=== PATIENT | female | born 1960 | race Caucasian/White ===

== ENCOUNTER 2016-11-26 15:54 | Inpatient (IN) | payer OTHER ==
[~2016-11-26] VITALS: Ht 165.1 cm; Wt 112.5 kg
--- NOTE | ~2016-11-26 | EKG ---
[place], [place] ELECTROCARDIOGRAM REPORT NAME: SHANNON FROST UNIT #: [id number] ROOM: [id number] DOCTOR: JORDI DENNISON MD BIRTHDATE: [birth year] DOS: 11/26/2016 TIME: 1637 hours. FINDINGS: 1. Sinus tachycardia at rate of 118. 2. Marked baseline artifact making interpretation difficult. 3. Possible left atrial enlargement. 4. Nonspecific ST-T wave changes. 5. Abnormal electrocardiogram. JORDI DENNISON MD CM:EKGRPT:ELECTROCARDIOGRAM REPORT [id number] JORDI DENNISON MD
[~2016-11-26 15:54] MED LIST: ATIVAN0.5 MG PO; FLUOXETINE40 MG PO; GLUCOPHAGE1000 MG PO; REMERON45 M1 PO; TEMAZEPAM30 MG PO; XALATAN 0.005%2.5 ML INTRAOC
[2016-11-26 15:59] VITALS: BP 169/75
[2016-11-26 16:16] VITALS: BP 171/87
[2016-11-26 16:39] LABS: HEMATOCRIT 31.7 % (37.0-47.0); HEMOGLOBIN 8.2 g/dl (12.0-16.0); MEAN CELL VOLUME 79.6 fl (81.0-99.0); MEAN CORPUSCULAR HGB 20.6 pg (27.0-31.0); MEAN CORPUSCULAR HGB CONC 25.9 g/dl (33.0-37.0); MEAN PLATELET VOLUME 8.5 fl (9.6-12.3); NUCLEATED RED BLOOD CELL 0.1 10*3/uL (0.0-0.0); NUCLEATED RED BLOOD CELL 0.3 % (0.0-0.0); PLATELET COUNT AUTOMATED 394 10*3/uL (130-400); RED BLOOD COUNT 3.98 10*6/uL (4.10-5.10); RED CELL DISTRI WIDTH 19.1 % (0-14.5); WHITE BLOOD COUNT 15.9 10*3/uL (4.8-10.8)
[2016-11-26 16:49] VITALS: BP 126/85
[2016-11-26 16:54] LABS: BUN 12 mg/dl (7-24); CARBON DIOXIDE 34 mmol/L (21-32); CHLORIDE 97 mmol/L (98-107); EST GLOM FILT AFRICAN AMERICAN > 60 ml/min; GLUCOSE 157 mg/dL (65-99); POTASSIUM 4.7 mmol/L (3.5-5.1); SODIUM 136 mmol/L (136-145)
[2016-11-26 16:55] LABS: TROPONIN I < 0.015 ng/ml (<0.045)
[2016-11-26 17:09] LABS: EOSINOPHIL # 0.2 10*3/uL (0-0.4); EOSINOPHILS 1 % (1-4); LYMPHOCYTE # 0.5 10*3/uL (1.3-4.4); MONOCYTE # 0.3 10*3/uL (0.1-1.0); NEUTROPHIL # 14.9 10*3/uL (2.3-7.9); NEUTROPHILS 94 % (47-73); TOTAL CELLS COUNTED 100 #CELLS
[2016-11-26 17:10] LABS: HYPOCHROMIA SLIGHT; PLATELET SUFFICIENCY NORMAL (NORMAL); POLYCHROMASIA SLIGHT
[2016-11-26 17:53] VITALS: BP 151/77
[2016-11-26 19:01] VITALS: BP 130/82
[2016-11-26] MEDS ORDERED: XANAX0.5 MG PO (21:20)
[2016-11-26] MEDS ORDERED: ABILIFY5 MG PO (21:22)
[2016-11-26 23:11] LABS: BILIRUBIN NEGATIVE (NEGATIVE); BLOOD NEGATIVE (NEGATIVE); CLARITY SL CLOUDY (CLEAR); COLOR YELLOW (YELLOW); GLUCOSE NEGATIVE (NEGATIVE); KETONE NEGATIVE (NEGATIVE); LEUKO ESTERASE NEGATIVE (NEGATIVE); NITRITE NEGATIVE (NEGATIVE); PH 5.5 (5.0-9.0); PROTEIN NEGATIVE (NEGATIVE); UROBILINOGEN 0.2 E.U./dl (0.2-1.0)
[2016-11-26 23:20] LABS: RBC 0-2 rbc/hpf (0-2)
[2016-11-26 23:21] LABS: BACTERIA 1+; URINE REFLEX COMMENT NO (NO)
[2016-11-27] VITALS: BP 141/61
[2016-11-27 00:32] LABS: CKMB < 0.5 ng/ml (0.5-3.6); CPK 24 U/L (26-192); TROPONIN I < 0.015 ng/ml (<0.045)
[2016-11-27 01:32] LABS: LA>2 REFLEX 2 HR DRAW NOW
[2016-11-27 01:42] LABS: LA>2 RFLX FOLLOW UP AT 2 HRS 4.4 mmol/L (0.4-2.0)
[2016-11-27 03:36] LABS: LA>2 REFLEX 4 HR DRAW NOW
[2016-11-27 06:25] LABS: HEMOGLOBIN 7.3 g/dl (12.0-16.0); MEAN CELL VOLUME 79.1 fl (81.0-99.0); MEAN CORPUSCULAR HGB 20.6 pg (27.0-31.0); MEAN CORPUSCULAR HGB CONC 26.1 g/dl (33.0-37.0); MEAN PLATELET VOLUME 8.9 fl (9.6-12.3); NUCLEATED RED BLOOD CELL 0.2 % (0.0-0.0); PLATELET COUNT AUTOMATED 386 10*3/uL (130-400); RED BLOOD COUNT 3.54 10*6/uL (4.10-5.10); RED CELL DISTRI WIDTH 18.8 % (0-14.5); WHITE BLOOD COUNT 15.7 10*3/uL (4.8-10.8)
[2016-11-27 06:34] LABS: CPK 19 U/L (26-192)
[2016-11-27 06:38] LABS: CKMB < 0.5 ng/ml (0.5-3.6); TROPONIN I < 0.015 ng/ml (<0.045)
[2016-11-27 06:52] LABS: BUN 16 mg/dl (7-24); CARBON DIOXIDE 34 mmol/L (21-32); CHLORIDE 93 mmol/L (98-107); CHOLESTEROL 172 mg/dL (<200); EST GLOM FILT AFRICAN AMERICAN > 60 ml/min; FREE T4 1.27 ng/dl (0.76-1.46); GLUCOSE 276 mg/dL (65-99); HDL CHOLESTEROL 34 mg/dl (40-60); LDL CHOLESTEROL 106 mg/dL (9-159); POTASSIUM 4.5 mmol/L (3.5-5.1); SODIUM 135 mmol/L (136-145); TRIGLYCERIDES 160 mg/dl (<150); VLDL CHOLESTEROL 32 mg/dL (6-40)
[2016-11-27 06:54] LABS: INTERNATIONAL NORM RATIO 1.1 (2.0-3.5); PROTHROMBIN TIME 11.4 SECONDS (9.0-12.4)
[2016-11-27 06:55] LABS: HEMOGLOBIN A1c 6.9 % (4.8-5.6)
[2016-11-27 06:59] LABS: THYROID STIM HORMONE (HS) 0.275 uIU/ml (0.358-4.75)
[2016-11-27 07:22] LABS: LYMPHOCYTE # 0.3 10*3/uL (1.3-4.4); MYELOCYTES 1 % (0-0); NEUTROPHIL # 15.2 10*3/uL (2.3-7.9); NEUTROPHILS 97 % (47-73); TOTAL CELLS COUNTED 100 #CELLS
[2016-11-27 07:23] LABS: HYPOCHROMIA MODERATE; MICROCYTOSIS SLIGHT; PLATELET SUFFICIENCY NORMAL (NORMAL); POLYCHROMASIA SLIGHT
[2016-11-27 07:40] LABS: FOLIC ACID 6.15 ng/mL (>5.38)
[2016-11-27 08:00] VITALS: BP 128/64; BP 130/60
[2016-11-27 08:13] LABS: LA>2 REFLEX 2 HR DRAW NOW
[2016-11-27 10:23] LABS: LA>2 REFLEX 4 HR DRAW NOW
[2016-11-27 12:00] VITALS: BP 108/69
[2016-11-27 16:00] VITALS: BP 121/76
[2016-11-27 17:14] LABS: LA>2 REFLEX 2 HR DRAW NOW
[2016-11-27 17:39] LABS: LA>2 RFLX FOLLOW UP AT 2 HRS 2.8 mmol/L (0.4-2.0)
[2016-11-27 19:30] LABS: LA>2 REFLEX 4 HR DRAW NOW
[2016-11-27 20:00] VITALS: BP 140/68
[2016-11-28] VITALS: BP 140/66
[2016-11-28 06:08] LABS: HEMATOCRIT 28.4 % (37.0-47.0); HEMOGLOBIN 7.4 g/dl (12.0-16.0); MEAN CORPUSCULAR HGB 20.8 pg (27.0-31.0); MEAN CORPUSCULAR HGB CONC 26.1 g/dl (33.0-37.0); MEAN PLATELET VOLUME 9.1 fl (9.6-12.3); NUCLEATED RED BLOOD CELL 0.2 % (0.0-0.0); PLATELET COUNT AUTOMATED 396 10*3/uL (130-400); RED BLOOD COUNT 3.55 10*6/uL (4.10-5.10); RED CELL DISTRI WIDTH 18.8 % (0-14.5); WHITE BLOOD COUNT 19.2 10*3/uL (4.8-10.8)
[2016-11-28 06:40] LABS: BUN 23 mg/dl (7-24); CARBON DIOXIDE 32 mmol/L (21-32); CHLORIDE 98 mmol/L (98-107); EST GLOM FILT AFRICAN AMERICAN > 60 ml/min; GLUCOSE 220 mg/dL (65-99); POTASSIUM 4.7 mmol/L (3.5-5.1); SODIUM 141 mmol/L (136-145)
[2016-11-28 07:07] LABS: HYPOCHROMIA MARKED; MONOCYTE # 0.4 10*3/uL (0.1-1.0); NEUTROPHIL # 17.9 10*3/uL (2.3-7.9); NEUTROPHILS 93 % (47-73); PLATELET SUFFICIENCY NORMAL (NORMAL); POLYCHROMASIA SLIGHT; TEAR DROP CELLS FEW; TOTAL CELLS COUNTED 100 #CELLS
[2016-11-28 08:00] VITALS: BP 157/89
[2016-11-28 12:00] VITALS: BP 146/80
[2016-11-28 16:00] VITALS: BP 140/79
[2016-11-28 20:00] VITALS: BP 142/86
[2016-11-29] VITALS: BP 157/87
[2016-11-29 06:13] LABS: HEMATOCRIT 28.3 % (37.0-47.0); HEMOGLOBIN 7.5 g/dl (12.0-16.0); MEAN CELL VOLUME 80.2 fl (81.0-99.0); MEAN CORPUSCULAR HGB 21.2 pg (27.0-31.0); MEAN CORPUSCULAR HGB CONC 26.5 g/dl (33.0-37.0); MEAN PLATELET VOLUME 9.2 fl (9.6-12.3); NUCLEATED RED BLOOD CELL 0.2 % (0.0-0.0); PLATELET COUNT AUTOMATED 425 10*3/uL (130-400); RED BLOOD COUNT 3.53 10*6/uL (4.10-5.10); RED CELL DISTRI WIDTH 18.9 % (0-14.5); WHITE BLOOD COUNT 17.6 10*3/uL (4.8-10.8)
[2016-11-29 07:40] LABS: HYPOCHROMIA MARKED; LYMPHOCYTE # 0.4 10*3/uL (1.3-4.4); MONOCYTE # 0.2 10*3/uL (0.1-1.0); MYELOCYTES 1 % (0-0); NEUTROPHIL # 16.9 10*3/uL (2.3-7.9); NEUTROPHILS 96 % (47-73); PLATELET SUFFICIENCY HIGH (NORMAL); POLYCHROMASIA SLIGHT; TOTAL CELLS COUNTED 100 #CELLS
[2016-11-29 08:00] VITALS: BP 164/86
[2016-11-29 12:00] VITALS: BP 150/86
[2016-11-29 16:00] VITALS: BP 167/92
[2016-11-29 20:00] VITALS: BP 148/81
[2016-11-30] VITALS: BP 148/85
[2016-11-30 06:22] LABS: HEMATOCRIT 29.4 % (37.0-47.0); HEMOGLOBIN 7.7 g/dl (12.0-16.0); MEAN CELL VOLUME 78.8 fl (81.0-99.0); MEAN CORPUSCULAR HGB 20.6 pg (27.0-31.0); MEAN CORPUSCULAR HGB CONC 26.2 g/dl (33.0-37.0); MEAN PLATELET VOLUME 9.3 fl (9.6-12.3); NUCLEATED RED BLOOD CELL 0.1 % (0.0-0.0); PLATELET COUNT AUTOMATED 427 10*3/uL (130-400); RED BLOOD COUNT 3.73 10*6/uL (4.10-5.10); RED CELL DISTRI WIDTH 18.6 % (0-14.5); WHITE BLOOD COUNT 15.4 10*3/uL (4.8-10.8)
[2016-11-30 06:55] LABS: LYMPHOCYTE # 0.3 10*3/uL (1.3-4.4); MONOCYTE # 0.2 10*3/uL (0.1-1.0); NEUTROPHIL # 14.9 10*3/uL (2.3-7.9); NEUTROPHILS 97 % (47-73); TOTAL CELLS COUNTED 100 #CELLS
[2016-11-30 06:56] LABS: HYPOCHROMIA MODERATE; PLATELET SUFFICIENCY HIGH (NORMAL); POLYCHROMASIA SLIGHT; STOMATOCYTE MODERATE
[2016-11-30 07:01] LABS: EST GLOM FILT AFRICAN AMERICAN > 60 ml/min
[2016-11-30 08:00] VITALS: BP 153/84
[2016-11-30] MEDS ORDERED: B12,B-12,B 12500 MC1 PO (11:22)
[2016-11-30] MEDS ORDERED: PREDNISONE10 MG PO (11:22)
[2016-11-30] MEDS ORDERED: LEVOFLOXACIN500 MG PO (11:22)
[2016-11-30 12:00] VITALS: BP 158/82
== END 2016-11-30 13:35 | disposition home or self-care (01) | DRG 871 ==
LOC: ED 15:54 → EDHOLD 17:42 → 5E 17:42
PROVIDERS: Emergency Medicine; Family Medicine; Internal Medicine
DX: A41.9 Sepsis, unspecified organism (principal); J96.21 Acute and chronic respiratory failure with hypoxia; E87.3 Alkalosis; I50.32 Chronic diastolic (congestive) heart failure; J44.1 Chronic obstructive pulmonary disease with (acute) exacerbation; E87.1 Hypo-osmolality and hyponatremia; I11.0 Hypertensive heart disease with heart failure; R65.20 Severe sepsis without septic shock; E11.65 Type 2 diabetes mellitus with hyperglycemia; H40.9 Unspecified glaucoma; F41.9 Anxiety disorder, unspecified; D50.9 Iron deficiency anemia, unspecified; E87.8 Other disorders of electrolyte and fluid balance, not elsewhere classified; E53.8 Deficiency of other specified B group vitamins; Z90.49 Acquired absence of other specified parts of digestive tract; Z87.891 Personal history of nicotine dependence; Z88.0 Allergy status to penicillin; Z82.49 Family history of ischemic heart disease and other diseases of the circulatory system; Z99.81 Dependence on supplemental oxygen; Z82.5 Family history of asthma and other chronic lower respiratory diseases; Z79.84 Long term (current) use of oral hypoglycemic drugs; Z79.899 Other long term (current) drug therapy

== ENCOUNTER 2017-02-21 09:57 | Emergency (ER) | payer OTHER ==
[~2017-02-21] VITALS: Ht 167.6 cm; Wt 124.7 kg
[~2017-02-21 09:57] MED LIST changes: +ABILIFY5 MG PO; +B12,B-12,B 12500 MC1 PO; +LEVOFLOXACIN500 MG PO; +PREDNISONE10 MG PO; +XANAX0.5 MG PO
[2017-02-21 10:32] LABS: HEMATOCRIT 23.9 % (37.0-47.0); MEAN CELL VOLUME 82.7 fl (81.0-99.0); MEAN CORPUSCULAR HGB 17.6 pg (27.0-31.0); MEAN CORPUSCULAR HGB CONC 21.3 g/dl (33.0-37.0); NUCLEATED RED BLOOD CELL 0.8 10*3/uL (0.0-0.0); NUCLEATED RED BLOOD CELL 3.6 % (0.0-0.0); PLATELET COUNT AUTOMATED 536 10*3/uL (130-400); RED BLOOD COUNT 2.89 10*6/uL (4.10-5.10); RED CELL DISTRI WIDTH 20.3 % (0-14.5); WHITE BLOOD COUNT 20.9 10*3/uL (4.8-10.8)
[2017-02-21] MEDS ORDERED: LISINOPRIL5 MG PO (10:32)
[2017-02-21 10:33] LABS: HEMOGLOBIN 5.1 g/dl (12.0-16.0)
[2017-02-21] MEDS ORDERED: INCRUSE EL62.5 MCG/A INH (10:34)
[2017-02-21] MEDS ORDERED: [UNRECOGNIZED DRUG - OTHER] INH (10:34)
[2017-02-21 10:39] LABS: INTERNATIONAL NORM RATIO 1.6 (2.0-3.5); PROTHROMBIN TIME 16.9 SECONDS (9.0-12.4)
[2017-02-21 10:46] LABS: ALBUMIN 2.5 gm/dl (3.1-4.5); BILIRUBIN, TOTAL 0.4 mg/dl (0.2-1.0); POTASSIUM 3.7 mmol/L (3.5-5.1); TOTAL PROTEIN 7.6 gm/dL (6.4-8.2)
[2017-02-21 10:48] LABS: TROPONIN I 0.307 ng/ml (<0.045)
[2017-02-21 10:52] LABS: BASOPHIL # 0.2 10*3/uL (0-0.1); BASOPHILS 1 % (0-1); HYPOCHROMIA MARKED; LYMPHOCYTE # 5.4 10*3/uL (1.3-4.4); METAMYELOCYTES 3 % (0-0); MONOCYTE # 0.8 10*3/uL (0.1-1.0); MYELOCYTES 2 % (0-0); NEUTROPHIL # 13.4 10*3/uL (2.3-7.9); NEUTROPHILS 64 % (47-73); PLATELET SUFFICIENCY HIGH (NORMAL); SCHISTOCYTES FEW; TOTAL CELLS COUNTED 100 #CELLS
[2017-02-21 10:53] LABS: POLYCHROMASIA SLIGHT
[2017-02-21 11:48] LABS: ABG CO2 CONTENT 19.6 mmol/L (23-27); ABG HCO3 17.8 mmol/l (22-26); ABG TEMPERATURE 97.7 F (98.0-99.0); ARTERIAL BLOOD GAS PO2 75.4 mmHg (80-90)
[2017-02-21 11:50] LABS: ABG BASE EXCESS -10.2 mmol/L (-2.0-2.0)
[2017-02-21 11:52] LABS: ARTERIAL BLOOD GAS PH 7.129 (7.35-7.45)
== END 2017-02-21 12:55 | disposition short-term general hospital (02) ==
LOC: ED 09:57
PROVIDERS: Emergency Medicine
DX: I46.9 Cardiac arrest, cause unspecified (principal); I21.4 Non-ST elevation (NSTEMI) myocardial infarction; D64.9 Anemia, unspecified; E11.65 Type 2 diabetes mellitus with hyperglycemia; K92.2 Gastrointestinal hemorrhage, unspecified; N28.9 Disorder of kidney and ureter, unspecified; I11.0 Hypertensive heart disease with heart failure; I50.9 Heart failure, unspecified; E78.00 Pure hypercholesterolemia, unspecified; J44.9 Chronic obstructive pulmonary disease, unspecified; Z99.81 Dependence on supplemental oxygen; Z90.49 Acquired absence of other specified parts of digestive tract; Z87.891 Personal history of nicotine dependence; Z98.890 Other specified postprocedural states; Z79.899 Other long term (current) drug therapy; Z88.0 Allergy status to penicillin